=== PATIENT | female | born 1985 | race Caucasian/White ===

== ENCOUNTER 2023-11-25 06:02 | Day surgery (SDC) | payer MEDICAID, SELFPAY ==
--- NOTE | 2023-11-24 09:19 | HP.PCM.OB_ITS ---
History and Physical Date of Admission: 11/25/23 Pre-Op History and Physical ? HPI: The patient is a 37 year old female presenting for sterilization consultation. Pt does not desire future child bearing capabilities. ? pre-operative visit. She is scheduled for laparoscopic bilateral salpingectomy, for desires sterilization on 11/25/23. Procedure discussed along with risks, benefits and complications. Other alternatives discussed for management. Consent form signed? Yes. ? ? PAST MEDICAL HISTORY PAST MEDICAL HISTORY Diagnosis Date ? Abdominal pain ? ? Alkaline phosphatase raised ? ? Alopecia ? ? check TSH ? Anxiety state, unspecified ? ? Asthma ? ? CHILDHOOD ASTHMA ? Chest pain ? ? primarily in left lateral ribs, get chest xray ? Cigarette smoker ? ? primarily in left lateral ribs, get chest xray ? Depressive disorder ? ? Diabetes mellitus (HCC) ? ? Disorder of peripheral nervous system ? ? Gabapentin, EMG/NCV ? ESR raised ? ? Excessive or frequent menstruation ? ? Gallstones ? ? Generalized anxiety disorder ? ? no antidepressants at this time, check bloodwork for overall health status, do relaxing and therapeutic activities at home ? High risk heterosexual behavior ? ? Insomnia ? ? trial of trazodone ? Irritable bowel syndrome ? ? trial of OTC fiber product such as metamucil ? Joint pain ? ? family history of RA ? Leukocytosis ? ? elevated in December 2015, UA wnl, CBC with diff ordered ? Pain radiating to back ? ? lumbar region ? Smoker 03/04/2018 ? Strep sore throat ? ? ? PAST SURGICAL HISTORY PAST SURGICAL HISTORY Procedure Laterality Date ? DELIVERY ONLY ? ? ? , low transverseX3 ? DILATION & CURETTAGE DX&/THER NONOBSTETRIC ? ? ? Dilation & curettage ? ? ? CURRENT MEDICATIONS Current Outpatient Medications Medication Sig Dispense Refill ? medroxyprogesterone acetate (DEPO-PROVERA INTRAMUSC.) Inject intramuscularly. ? ? ? omeprazole (PRILOSEC) 20 mg capsule take 1 capsule by mouth once daily 30 capsule 5 ? UNILET LANCET 28 gauge USE DIRECTED to test BLOOD SUGAR ONCE DAILY 100 Each 2 ? metFORMIN (GLUCOPHAGE) 500 mg tablet take 1 tablet by mouth twice daily with meals 60 tablet 2 ? traZODone (DESYREL) 50 mg tablet Take 0.5-1 tablets by mouth daily at bedtime. 30 tablet 1 ? spironolactone (ALDACTONE) 100 mg tablet Take 100 mg by mouth daily at bedtime. ? ? ? Biotin 1 mg tab Take 1 tablet by mouth once daily. ? ? ? mv-min/iron/folic/calcium/vitK (WOMEN'S MULTIVITAMIN ORAL) Take by mouth. ? ? ? cholecalciferol (VITAMIN D3) 1,000 unit tab tablet Take 1,000 Units by kamran th once daily. ? ? ? Blood-Glucose Meter ? blood sugar diagnostic (TRUE METRIX GLUCOSE TEST STRIP) test strip Use as instructed to test BLOOD SUGAR ONCE DAILY 100 Strip 1 ? No current facility-administered medications for this visit. ? ? ALLERGIES: Patient has no known allergies. ? PERSONAL HISTORY: SOCIAL HISTORY Social History ? Tobacco Use ? Smoking status: Former ? ? Years: 6 ? ? Types: Cigarettes ? ? Start date: 08/30/2001 ? ? Quit date: 07/30/2018 ? ? Years since quittin.2 ? Smokeless tobacco: Never ? Tobacco comments: ? ? Vape Vaping Use ? Vaping Use: current everyday user ? Substances: Nicotine, Flavoring ? Devices: [employer] Substance Use Topics ? Alcohol use: Yes ? ? Comment: once a year ? Drug use: No ? FAMILY HISTORY: FAMILY HISTORY FAMILY HISTORY Problem Relation Age of Onset ? Stroke Mother ? ? Heart Mother ? ? Asthma Father ? ? CHILDHOOD ASTHMA ? Colon Cancer Father ? ? Diabetes Father ? ? Heart Father ? ? NE ? Alcohol/Drug Maternal Grandfather ? ? ? REVIEW OF SYMPTOMS: negative except as noted above PHYSICAL EXAMINATION: ? VITALS: Blood pressure 124/72, weight 190 lb (86.2 kg), last menstrual period 02/27/2022. ? GENERAL: The patient is well nourished, well hydrated in no acute distress. , The patient is oriented to time, place, and person. NECK: full range of motion LUNGS: Clear to auscultation bilaterally. no wheezes, rhonchi or rales HEART: Regular rate and rhythm, Normal heart sounds, and No murmurs or gallops ? IMPRESSION: desires sterilization ? PLAN: Laparoscopic bilateral salpingectomy ? Pt has been counseled on risks/benefits and alternatives of surgery including but not limited to anesthesia, bleeding, infection, injury to pelvic structures including bowel, bladder, ureters and vessels. Pt wishes to proceed with surgery at this time. ? Title 19 previously signed. ? Pre and post op instructions reviewed. ? Pre op clearance obtained on chart from [facility]. ? I have reviewed and updated past medical and surgical history, medications and allergies Jennifer Julien MD ?4:28 PM Office Visit on 11/02/2023 Office Visit on 11/02/2023 Note shared with patient
[2023-11-25 06:32] LABS: Internal QC Validated? YES +Cl - CLEAR BKGD; Pregnancy, Urine Negative Negative
[2023-11-25 06:36] VITALS: BP 109/75; PULSE 78; RESP 16; TEMP 36.5; O2SAT 98; BMI 28.0
[2023-11-25] MEDS: Lactated Ringers 1,000 ML 15 ML IV ×2 (06:48→08:29)
[2023-11-25 07:17] LABS: Bedside Glucose 196 mg/dL (74-106)
[2023-11-25 07:24] LABS: Hematocrit 42.5 % (37-47); Hemoglobin 14.7 g/dL (12.0-15.0); Mean Corp Hgb Conc 34.6 g/dL (32-36); Mean Corpuscular Hgb 29.2 pg (27.0-32.0); Mean Corpuscular Volume 84.5 fL (81-99); Mean Platelet Vol. 10.1 fl (6.2-12.0); Platelet Count 437 K/mm3 (150-450); RBC Distribution Width CV 12.7 % (11.6-14.6); RBC Distribution Width SD 38.5 fl (35.1-43.9); Red Blood Count 5.03 M/mm3 (4.2-5.4); White Blood Count 8.2 K/mm3 (4.4-11.0)
--- NOTE | 2023-11-25 07:30 | FALS_PTH ---
PATIENT: FIOR PASCAL [place] [facility] [place][id number] AGE/SX: 38/F ROOM: RE11/25/[address]: Dr. Jennifer Aguilar, MDDOB: 1985 BED: DIS: 11/25/2023 SPEC #: [id number] RECD: 11/25/23 10:50 STATUS: FREDI R[place] #: [id number] GODFREY: 11/25/23 07:[address]: Jennifer Aguilar DEPT: SURGICAL PATHOLOGY RECD BY: Ashlee Madison ENTERED: 11/25/23 12:39 SP TYPE: FALL TUBES OTHR DR: Dr. Zaira Hodge, DO Tissues: Fallopian tube Procedures: Surgery Specimen Level II Surgery Specimen Level IV HEADER OPERATION: Laparoscopic salpingectomy PRE-OP DIAGNOSIS: Desires sterilization TISSUE SUBMITTED: Bilateral fallopian tubes MICROSCOPIC DIAGNOSIS Right and left fallopian tubes, bilateral salpingectomies: Two complete cross sections of fallopian tubes. One fallopian tube with benign paratubal cysts. AM:mr 11/26/23 MICROSCOPIC DESCRIPTION Slides are reviewed. GROSS DESCRIPTION Received in fixative is one container labeled with the patient's name and designated bilateral fallopian tubes. The specimen consists of bilateral fallopian tubes including fimbrial ends measuring 6.0 cm in length and 0.5 cm in diameter and 3.5cm in length and 0.5cm in diameter. The fallopian tubes are not identified as right or left. Sections reveal unremarkable cut surfaces. Customer Success Specialist sections are submitted in two cassettes with each cassette containing one fallopian tube. / SJ: 11/25/23 TC:5 CPT: 64863 x1,11004
[2023-11-25 07:47] LABS: Anion Gap 7 (5-15); BUN 10 mg/dL (7-18); BUN/Creat Ratio 13.8 RATIO (10-20); Calcium,Total 9.2 mg/dL (8.5-10.1); Chloride 110 mmol/L (98-107); Creatinine, Serum 0.73 mg/dL (0.55-1.02); EST Glomerular Filtration Rate 95 mL/min (>60); Est Glom Filt Rate - Afr Amer 115 mL/min (>60); Glucose 194 mg/dL (74-106); Potassium 3.6 mmol/L (3.5-5.1); Sodium Level 139 mmol/L (136-145)
[2023-11-25] MEDS: Bupivacaine 0.5% PF 10 ML VIAL (07:55)
--- NOTE | 2023-11-25 08:09 | DCINST_ITS ---
Discharge Instructions Diet Discharge Diet: No restrictions Activity May resume sexual activity in: 2 weeks Lifting Restrictions: 20-25 lbs Dressing / Incision Call your doctor if your incision/area has: Continuous Slow Oozing, Sudden Increased Bleeding, Increased Pain/ Swelling, Increased Redness, Foul Smelling Discharge and Swelling at the incision site Call your doctor if you observe: Fever of 101 or Higher, Inability to urinate, Inability to have a bowel movement, Using more than 1 pad per hour and Uncontrolled pain Additional Dressing/Incision Instructions:: You have skin glue over your incision sites, do not pick off. You may shower and let the soap and water run over the incision sites and dab dry. Follow Up Care Please Follow Up With: Jennifer Julien MD When: 1-2 weeks post OP if you need an appointment please call [phone] Test Results: Test results from this visit will be discussed in further detail at your follow- up appointment, if applicable. Discharge Plan Admission Attending Provider: Jennifer Julien Primary Care Provider: Zaira Hodge Discharge Orders/Prescriptions Prescriptions: No Action metformin 500 mg tablet 500 mg PO BID spironolactone 100 mg tablet 200 mg PO QHS bupropion HCl 150 mg tablet sustained-release 12 hr 300 mg PO DAILY multivitamin [Daily Multi-Vitamin] Tablet 1 tab PO DAILY Referrals / Follow Up: Zaira Hodge DO [Primary Care Provider] - Disposition Disposition (needs filled in before D/C Order can be placed): Home, Self Care
--- NOTE | 2023-11-25 08:10 | OP.PCM_ITS ---
Report of Operation Date of Procedure: 11/25/23 Pre-Operative Diagnosis: DESIRES STERILIZATION Post-Operative Diagnosis: SAME Surgery/Procedure Performed:: laparoscopic bilateral salpingectomy Description of Surgical Findings:: Normal tubes and ovaries bilaterally Surgeon: Jennifer Julien rotor blade installer: None (Manpreet Maradiaga, MS3) Type of Anesthesia: General and Local Special Medications: 0.5% marcaine Specimen's removed: bilateral fallopian tubes Estimated Blood Loss (mL): <5cc Fluids Replaced: 1000cc Description of Procedure: After informed consent was obtained patient was taken to the operating room she was placed in supine position she was given anesthesia. She was then placed in the [facility] stirrups and she was prepped and draped in normal sterile fashion. Bladder was drained prior to the start of procedure. At this time attention was turned to the vaginal portion where weighted speculum placed at posterior fornix vagina single-tooth tenaculum was used to gently grasp the internal the cervix. uterus was gently sounded to approximately 7cm. Uterine manipulator was placed without difficulty. Legs then placed in parallel with the abdomen the tenaculum and the weighted speculum were removed. 2 towel clamps were placed at level of umbilicus. Marcaine was injected infraumbilical and a small incision was made. The 5 mm trocar was placed under direct visualization. CO2 gas was used to insufflate the intra-abdominal cavity. Upon inspection no gross abnormalities appreciated- the uterus tubes and ovaries appeared to be normal. At this time then the LLQ and RLQ ports were placed First Marcaine was injected and small incision was made a knife and the 5 mm trocars were placed. At this time then tubes were traced back to the fimbriated ends. enseal was used to coagulate and ligate along mesosalpinx bilaterally until tubes removed completely. Good hemostasis was appreciated. At this time procedure was deemed complete successful. The gas was desufflated on from the intra-abdominal cavity. The trochars were removed. Skin was closed using 4-0 Monocryl in a subcutaneous fashion. Dermabond glue was placed. Instrument lap and needle counts were correct ?2. The uterine manipulator was removed. Vaginal sweep was performed it was negative. There were no complications anticipated normal postoperative course for this patient. Procedure Start Time: 07:45 Procedure Stop Time: 08:09 Complications none Admit VTE Documentation VTE Present on Admission: Yes VTE Mechan Device Prophylaxis: SCD's VTE Pharm Prophylaxis ordered?: No Reason prophylaxis not ordered:: Procedure Not Indicated
[2023-11-25 08:20] VITALS: BP 109/75; BP 146/108; PULSE 70; RESP 16; TEMP 36.3; O2SAT 99
[2023-11-25 08:25] VITALS: BP 109/75; BP 138/79; PULSE 53; RESP 16; O2SAT 100
[2023-11-25 08:30] VITALS: BP 109/75; BP 128/47; PULSE 61; RESP 16; O2SAT 100
[2023-11-25 08:43] LABS: Hemoglobin A1c 5.8 % (3.8-5.6)
[2023-11-25 08:45] VITALS: BP 109/75; BP 132/83; PULSE 54; RESP 16; TEMP 36.2; O2SAT 98
[2023-11-25 08:51] LABS: Bedside Glucose 180 mg/dL (74-106)
[2023-11-25 09:12] VITALS: BP 109/75
== END 2023-11-25 09:24 | disposition home or self-care (01) ==
LOC: SDC 06:05 → AC 06:06
PROVIDERS: Anesthesiology; PCP Family Medicine; Referring Provider Family Medicine; Visit Provider Obstetrics & Gynecology
PROC: (CPT 58661; principal; 2023-11-25 07:15)
DX: Z30.2 Encounter for sterilization (principal); E11.9 Type 2 diabetes mellitus without complications; N83.8 Other noninflammatory disorders of ovary, fallopian tube and broad ligament; F41.1 Generalized anxiety disorder; Z79.84 Long term (current) use of oral hypoglycemic drugs; Z79.899 Other long term (current) drug therapy; Z87.891 Personal history of nicotine dependence
CPT/HCPCS: 58661; 00840; 80048; 81025; 82962; 83036; 85027; 88302; 88305; J7120; C1760; J2405